=== PATIENT | female | born 1990 | race African-American/Black ===

== ENCOUNTER 2017-08-18 19:33 | Emergency (ER) | payer OTHER ==
[~2017-08-18] VITALS: Ht 180.3 cm; Wt 98.9 kg
--- NOTE | 2017-08-18 19:52 | ED.ADGEN ---
Adult General Chief Complaint Chief Complaint "I was opening a can of carrots...I usually use fresh... but I was out and the lid got stuck.. and I cut my finger...s" HPI HPI Patient is a 27 year old female who presents with above hx and complaints of laceration centimeter laceration dorsal side of right index finger. Distal neurovascular intact. Laceration as flap-like and skin is somewhat avascular. Patient is left-hand dominant. No history immunosuppression denies travel. No history of specific ill contacts. Remember her last tetanus vaccination. Review of Systems Review of Systems Constitutional: Denies fever or chills [] Eyes: Denies change in visual acuity, redness, or eye pain [] HENT: Denies nasal congestion or sore throat [] Respiratory: Denies cough or shortness of breath [] Cardiovascular: No additional information not addressed in HPI [] GI: Denies abdominal pain, nausea, vomiting, bloody stools or diarrhea [] : Denies dysuria or hematuria [] Musculoskeletal: Denies back pain or joint pain [] Integument: Denies rash or skin lesions [complaints of laceration right index finger Neurologic: Denies headache, focal weakness or sensory changes [] Endocrine: Denies polyuria or polydipsia [] All other systems were reviewed and found to be within normal limits, except as documented in this note. Family History Family History Noncontributory Current Medications Current Medications Current Medications Medications (Trade) Dose Ordered Sig/Chidi Start Time Stop Time Status Last Admin Dose Admin Bupivacaine HCl (Sensorcaine Mpf 0.5%) 30 ml 1X ONCE 08/18/17 20:30 08/18/17 20:31 DC Bupivacaine HCl (Sensorcaine Pf 0.75%) 10 ml STK-MED ONCE 08/18/17 20:04 08/18/17 20:05 DC Lidocaine HCl 20 ml 1X ONCE 08/18/17 20:30 08/18/17 20:31 DC 08/18/17 20:30 20 ML Tetanus/ Diphtheria Toxoids Adsorbed (Tenivac Vial) 0.5 ml ONCE ONCE 08/18/17 20:30 08/18/17 20:31 DC 08/18/17 20:30 0.5 ML Allergies Allergies Allergies Coded Allergies Type Severity Reaction Last Updated Verified No Known Drug Allergies 08/18/17 No Physical Exam Physical Exam Constitutional: Well developed, well nourished, mild distress, non-toxic appearance. [] HENT: Normocephalic, atraumatic, bilateral external ears normal, oropharynx moist, no oral exudates, nose normal. [] Eyes: PERRLA, EOMI, conjunctiva normal, no discharge. [] Neck: Normal range of motion, no tenderness, supple, no stridor. [] Cardiovascular:Heart rate regular rhythm, no murmur [] Lungs & Thorax: Bilateral breath sounds clear to auscultation [] Abdomen: Bowel sounds normal, soft, no tenderness, no masses, no pulsatile masses. [] Skin: Warm, dry, no erythema, no rash. [] Laceration right index finger as per history of present illness Back: No tenderness, no CVA tenderness. [] Extremities: No tenderness, no cyanosis, no clubbing, ROM intact, no edema. [] Neurologic: Alert and oriented X 3, normal motor function, normal sensory function, no focal deficits noted. [] Psychologic: Affect normal, judgement normal, mood normal. [] Current Patient Data Vital Signs Vital Signs Date Time Temp Pulse Resp B/P (MAP) Pulse Ox O2 Delivery O2 Flow Rate FiO2 08/18/17 19:54 98.6 65 20 99 Room Air EKG EKG [] Radiology/Procedures Radiology/Procedures [] Course & Med Decision Making Course & Med Decision Making Pertinent Labs and Imaging studies reviewed. (See chart for details) Procedure note- laceration repair- finger irrigated with normal saline and Betadine prep. Digital block with Sensorcaine and lidocaine. Finger re- irrigated and washed in range of motion. Laceration closed with 4-0 Prolene 6 simple sutures . Dressing was Applied. Patient keep laceration clean and dry. Sutures out in 10 days. Patient return if any concerns. Dressing removed apply Polysporin 4 times a day until healed. [] Final Impression Final Impression 1. Laceration[]- 2 cm dorsal index Rt. hand Problems: Dragon Disclaimer Dragon Disclaimer This electronic medical record was generated, in whole or in part, using a voice recognition dictation system. JHON OREILLY MD Aug 18, 2017 19:52
[2017-08-18 19:54] VITALS: BP 125/71
[2017-08-18] MEDS ORDERED: BUPIVACAINE PF 0.75% 10 ML VIAL ONE (20:04)
[2017-08-18] MEDS ORDERED: LIDOCAINE 2% 20 ML VIAL. IJ ONE (20:30)
[2017-08-18] MEDS ORDERED: BUPIVACAINE MPF 0.5% 30 ML VIAL. SQ ONE (20:30)
[2017-08-18] MEDS ORDERED: TETANUS AND DIPHTHERIA TOX/PF 0.5 ML VIAL. VAX IM ONE (20:30)
== END 2017-08-18 21:17 | disposition home or self-care (01) ==
LOC: ER 19:33
DX: S61.210A Laceration without foreign body of right index finger without damage to nail, initial encounter (principal); W26.8XXA Contact with other sharp object(s), not elsewhere classified, initial encounter; Y93.89 Activity, other specified; Y99.8 Other external cause status; Y92.89 Other specified places as the place of occurrence of the external cause
CPT/HCPCS: 12001; 90471; 90714; 99283-25; J2001

== ENCOUNTER 2017-08-30 09:24 | Emergency (ER) | payer OTHER ==
[~2017-08-30] VITALS: Ht 180.3 cm; Wt 98.9 kg
--- NOTE | 2017-08-30 09:55 | PHYS DOC ---
Past History Past Medical History: No Pertinent History Past Surgical History: No Surgical History Alcohol Use: None Drug Use: None Adult General Chief Complaint Chief Complaint: SUTURE/STAPLE REMOVAL HPI HPI Patient is a 27 year old F who presents for suture removal in the right fourth finger. Her sutures were placed 10 days ago after cutting her hand on a can. She has had no issues. She currently denies pain, redness or swelling. She has no other associated symptoms. She has no other exacerbating or alleviating factors. Review of Systems Review of Systems Constitutional: Denies fever or chills [] Eyes: Denies change in visual acuity, redness, or eye pain [] HENT: Denies nasal congestion or sore throat [] Respiratory: Denies cough or shortness of breath [] Cardiovascular: No additional information not addressed in HPI [] GI: Denies abdominal pain, nausea, vomiting, bloody stools or diarrhea [] : Denies dysuria or hematuria [] Musculoskeletal: Denies back pain or joint pain [] Integument: Negative except HPI Neurologic: Denies headache, focal weakness or sensory changes [] Endocrine: Denies polyuria or polydipsia [] All other systems were reviewed and found to be within normal limits, except as documented in this note. Family History Family History No pertinent family medical history was reported Current Medications Current Medications Current medications reviewed Allergies Allergies Allergies Coded Allergies Type Severity Reaction Last Updated Verified No Known Drug Allergies 08/18/17 No Physical Exam Physical Exam Constitutional: Well developed, well nourished, no acute distress, non-toxic appearance. [] HENT: Normocephalic, atraumatic Eyes: EOMI, conjunctiva normal, no discharge. [] [] Cardiovascular:Heart rate regular rhythm, Lungs & Thorax: Bilateral breath sounds clear to auscultation [] Skin: Warm, dry, no erythema, no rash. [] Right fourth finger dorsal distal sutures noted, no erythema, edema or drainage noted. Normal range of motion was noted. Normal sensation noted. Extremities: No tenderness, no cyanosis, no clubbing, ROM intact, no edema. [] Neurologic: Alert and oriented X 3, normal motor function, normal sensory function, no focal deficits noted. [] Psychologic: Affect normal, judgement normal, mood normal. [] Current Patient Data Vital Signs Normal vital signs. Please review nursing recommendation for specifics EKG EKG [] Radiology/Procedures Radiology/Procedures [] Course & Med Decision Making Course & Med Decision Making Pertinent Labs and Imaging studies reviewed. (See chart for details) [] Dragon Disclaimer Dragon Disclaimer This electronic medical record was generated, in whole or in part, using a voice recognition dictation system. Departure Departure: Impression: Primary Impression: Visit for suture removal Disposition: HOME, SELF-CARE Condition: STABLE Referrals: PCP,NO (PCP) Patient Instructions: Suture Removal Additional Instructions: Akua was seen in the emergency department for suture removal. No emergency medical condition was found on history or physical exam. Her sutures were removed without come occasion. She is advised follow-up with her primary care doctor as needed for further management. DENICE CALLE MD Aug 30, 2017 09:55
[2017-08-30 10:23] VITALS: BP 111/58
== END 2017-08-30 10:25 | disposition home or self-care (01) ==
LOC: ER 09:24
DX: S61.214D Laceration without foreign body of right ring finger without damage to nail, subsequent encounter (principal); X58.XXXD Exposure to other specified factors, subsequent encounter
CPT/HCPCS: 99281

== ENCOUNTER 2018-01-19 16:43 | Emergency (ER) | payer OTHER ==
[~2018-01-19] VITALS: Ht 180.3 cm; Wt 97.5 kg
[2018-01-19 16:50] VITALS: BP 145/52
[2018-01-19] MEDS ORDERED: MUPI15CR TP (16:59)
--- NOTE | 2018-01-19 16:59 | PHYS DOC ---
Past History Past Medical History: No Pertinent History Past Surgical History: No Surgical History Alcohol Use: None Drug Use: None Adult General Chief Complaint Chief Complaint: SKIN PROBLEM HPI HPI Patient is a [age] year old [sex] who presents with [] Review of Systems Review of Systems Constitutional: Denies fever or chills [] Eyes: Denies change in visual acuity, redness, or eye pain [] HENT: Denies nasal congestion or sore throat [] Respiratory: Denies cough or shortness of breath [] Cardiovascular: No additional information not addressed in HPI [] GI: Denies abdominal pain, nausea, vomiting, bloody stools or diarrhea [] : Denies dysuria or hematuria [] Musculoskeletal: Denies back pain or joint pain [] Integument: Denies rash or skin lesions [] Neurologic: Denies headache, focal weakness or sensory changes [] Endocrine: Denies polyuria or polydipsia [] All other systems were reviewed and found to be within normal limits, except as documented in this note. Allergies Allergies Allergies Coded Allergies Type Severity Reaction Last Updated Verified No Known Drug Allergies 08/18/17 No Physical Exam Physical Exam Constitutional: Well developed, well nourished, no acute distress, non-toxic appearance. [] HENT: Normocephalic, atraumatic, bilateral external ears normal, oropharynx moist, no oral exudates, nose normal. [] Eyes: PERRLA, EOMI, conjunctiva normal, no discharge. [] Neck: Normal range of motion, no tenderness, supple, no stridor. [] Cardiovascular:Heart rate regular rhythm, no murmur [] Lungs & Thorax: Bilateral breath sounds clear to auscultation [] Abdomen: Bowel sounds normal, soft, no tenderness, no masses, no pulsatile masses. [] Skin: Warm, dry, no erythema, no rash. [] Back: No tenderness, no CVA tenderness. [] Extremities: No tenderness, no cyanosis, no clubbing, ROM intact, no edema. [] Neurologic: Alert and oriented X 3, normal motor function, normal sensory function, no focal deficits noted. [] Psychologic: Affect normal, judgement normal, mood normal. [] EKG EKG [] Radiology/Procedures Radiology/Procedures [] Course & Med Decision Making Course & Med Decision Making Pertinent Labs and Imaging studies reviewed. (See chart for details) [] Dragon Disclaimer Dragon Disclaimer This electronic medical record was generated, in whole or in part, using a voice recognition dictation system. Departure Departure: Impression: Primary Impression: Inflamed skin tag Disposition: HOME, SELF-CARE Condition: STABLE Referrals: REED PADILLA MD (PCP) Patient Instructions: Wound Care, [id number] Scripts Mupirocin Calcium (BACTROBAN) 15 Gm Cream..g. 1 MALINDA TP TID for 7 Days, #30 GM Prov: LUIS CHAUHAN DO 01/19/18 LUIS CHAUHAN DO Jan 19, 2018 16:59
[2018-01-19] MEDS ORDERED: LIDOCAINE 1%/EPI 1:100,000 20 ML VIAL. IJ ONE (17:00)
[2018-01-19] MEDS ORDERED: BACITRACIN TOPICAL OINT 28GM TUBE. TP ONE (17:00)
== END 2018-01-19 17:22 | disposition home or self-care (01) ==
LOC: ER 16:43
DX: L08.89 Other specified local infections of the skin and subcutaneous tissue (principal); L91.8 Other hypertrophic disorders of the skin
CPT/HCPCS: 99283

== ENCOUNTER 2018-08-08 11:46 | Emergency (ER) | payer OTHER ==
[~2018-08-08] VITALS: Ht 177.8 cm; Wt 86.2 kg
[~2018-08-08 11:46] MED LIST: MUPI15CR TP
[2018-08-08 12:00] VITALS: BP 116/70
--- NOTE | 2018-08-08 12:21 | PHYS DOC ---
Past History Past Medical History: No Pertinent History Past Surgical History: No Surgical History Alcohol Use: None Drug Use: None Adult General Chief Complaint Chief Complaint: SKIN PROBLEM HPI HPI Patient is a 28-year-old otherwise healthy female who presents secondary to rash. She states she's been breaking out on the dorsal surface of both hands the rash comes and goes. She's also had a similar rash on her neck. She states she's used hydrocortisone cream with some relief. She states it does itch at times and she is concerned that it might be eczema.[] Review of Systems Review of Systems All other systems were reviewed and found to be within normal limits, except as documented in this note. Allergies Allergies Allergies Coded Allergies Type Severity Reaction Last Updated Verified No Known Drug Allergies 08/18/17 No Physical Exam Physical Exam Constitutional: Well developed, well nourished, no acute distress, non-toxic appearance. [] Cardiovascular:Heart rate regular rhythm, no murmur [] Lungs & Thorax: Bilateral breath sounds clear to auscultation [] Abdomen: Bowel sounds normal, soft, no tenderness, no masses, no pulsatile masses. [] Skin: I do not appreciate any rash at this time.] Back: No tenderness, no CVA tenderness. [] Extremities: No tenderness, no cyanosis, no clubbing, ROM intact, no edema. [] Neurologic: Alert and oriented X 3, normal motor function, normal sensory function, no focal deficits noted. [] Psychologic: Affect normal, judgement normal, mood normal. [] Current Patient Data Vital Signs Vital Signs Date Time Temp Pulse Resp B/P (MAP) Pulse Ox O2 Delivery O2 Flow Rate FiO2 08/08/18 12:00 98.5 69 18 100 Room Air EKG EKG [] Radiology/Procedures Radiology/Procedures [] Course & Med Decision Making Course & Med Decision Making Pertinent Labs and Imaging studies reviewed. (See chart for details) [] Dragon Disclaimer Dragon Disclaimer This electronic medical record was generated, in whole or in part, using a voice recognition dictation system. Departure Departure: Impression: Primary Impression: Eczema Disposition: 01 HOME, SELF-CARE Condition: STABLE Referrals: REED PADILLA MD (PCP) Patient Instructions: Eczema Additional Instructions: As we discussed, hydrocortisone cream she can buy [id number] is best to treat the early stages of this problem. Please return to the emergency department with any new or concerning symptoms Problem Qualifiers Primary Impression: Eczema Eczema type: unspecified Qualified Codes: L30.9 - Dermatitis, unspecified SAEID DIOP DO Aug 08, 2018 12:21
== END 2018-08-08 12:25 | disposition home or self-care (01) ==
LOC: ER 11:46
DX: L30.9 Dermatitis, unspecified (principal)
CPT/HCPCS: 99281